=== PATIENT | male | born 1975 | race Caucasian/White ===

== ENCOUNTER → 2017-01-31 | Outpatient (CLI) | payer MEDICARE ==
[~2017-01-31] MED LIST: ASPIRIN325 MG PO; ATORVASTATIN CA10 MG PO; DOSS PO; FLONASE 0.05% N16 GM; HUMALOG SQ; INVOKANA100 MG PO; LANTUS100 UNIT/1 SQ; LISINOPRIL-HCT1 EAC2 PO; LORTAB 7.5-3251 EACH PO; NEURONTIN400 MG PO; NORVASC 5 MG TAB5 MG PO; PERCOCET 5-3251 EACH PO; PHENERGAN 12.12.5 M1 PO; PROTONIX40 MG PO; PROVENTIL HFA 61 INH INH; SINGULAIR10 MG PO; SYMBICORT 160-1 INHA INH; VENTOLIN HFA8 GM INH; ZANAFLEX4 M1 PO
[2017-01-31 13:18] LABS: BUN/CREATININE RATIO 9 (0-10)
== END ==
LOC: OPSV2 12:23
PROVIDERS: Orthopaedic Surgery
DX: Z01.812 Encounter for preprocedural laboratory examination (principal); Z01.810 Encounter for preprocedural cardiovascular examination; S83.511A Sprain of anterior cruciate ligament of right knee, initial encounter
CPT/HCPCS: 36415; 80048; 83036; 93005

== ENCOUNTER → 2017-02-07 | Day surgery (SDC) | payer MEDICARE ==
[~2017-02-07] VITALS: Ht 175.3 cm; Wt 139.7 kg
== END | disposition home or self-care (01) ==
LOC: OR 08:43
PROVIDERS: Orthopaedic Surgery
PROC: 0MUN47Z Supplement Right Knee Bursa and Ligament with Autologous Tissue Substitute, Percutaneous Endoscopic Approach (ICD-10-PCS; principal; 2017-02-07 09:45)
DX: S83.511A Sprain of anterior cruciate ligament of right knee, initial encounter (principal); M22.41 Chondromalacia patellae, right knee; I10 Essential (primary) hypertension; E78.5 Hyperlipidemia, unspecified; J45.909 Unspecified asthma, uncomplicated; K21.9 Gastro-esophageal reflux disease without esophagitis; E11.9 Type 2 diabetes mellitus without complications; G47.33 Obstructive sleep apnea (adult) (pediatric); M19.90 Unspecified osteoarthritis, unspecified site; G43.909 Migraine, unspecified, not intractable, without status migrainosus; G89.29 Other chronic pain; M54.9 Dorsalgia, unspecified; Z90.49 Acquired absence of other specified parts of digestive tract; Z79.4 Long term (current) use of insulin; Z79.899 Other long term (current) drug therapy; Z87.19 Personal history of other diseases of the digestive system; Z87.440 Personal history of urinary (tract) infections; Z82.49 Family history of ischemic heart disease and other diseases of the circulatory system
CPT/HCPCS: 73560; 76000; 82962; C1713; J0171; J0690; J1100; J2250; J2405; J2550; J2710; J2795; J3010; J7030; J7120

== ENCOUNTER → 2017-05-10 | Outpatient (CLI) | payer MEDICARE | LOC: EMI 18:07 | DX: M54.9 Dorsalgia, unspecified (principal); M47.896 Other spondylosis, lumbar region | CPT/HCPCS: 72148 ==

== ENCOUNTER 2021-02-25 15:16 | Emergency (ER) | payer OTHER ==
[~2021-02-25 15:16] MED LIST changes: +BACTRIM DS TAB1 EACH PO; +ELIQUIS2.5 MG PO; +EPINEPHRIN0.3 MG/0.3 INJ; +FLEXERIL 10 MG10 MG PO; +FLUTICASONE SPRAY; +IBU800 MG PO; +IBUPROFEN600 MG PO; +KEFLEX CAP 500500 MG PO; +LIPITOR40 MG PO; +LISINOPRIL-HCT1 EACH PO; +LISINOPRIL10 MG PO; +MUCINEX600 MG PO; +NAPROSYN500 MG PO; +NORCO 5-325 TA1 EACH PO; +PROMETHAZINE-DM PO; +ROBITUSSIN100 MG/51 PO; +SUDOGEST PE10 MG PO; +TESSALON PERLE100 MG PO; +VENTOLIN HFA 66.7 GM INH; +WIXELA 250-501 EACH INH; +ZOFRAN 4 MG TAB4 MG PO; +ZOFRAN4 MG PO; +ZYRTEC10 MG PO
[2021-02-25 17:25] LABS: HEMOGLOBIN 16.4 gm/dl (14.0-17.5); RED BLOOD COUNT 5.53 M/UL (4.20-5.50); WHITE BLOOD COUNT 7.3 K/UL (4.5-11.0)
[2021-02-25 17:48] LABS: BUN/CREATININE RATIO 9 (0-10)
[2021-02-25] MEDS ORDERED: ZOFRAN4 MG PO (20:03)
== END 2021-02-25 20:36 | disposition home or self-care (01) ==
LOC: ER1 15:16
PROVIDERS: Student in an Organized Health Care Education/Training Program
DX: R10.9 Unspecified abdominal pain (principal); R11.2 Nausea with vomiting, unspecified; E11.9 Type 2 diabetes mellitus without complications; I10 Essential (primary) hypertension; Z79.899 Other long term (current) drug therapy
CPT/HCPCS: 80053; 81001; 82550; 82553; 83690; 83874; 84484; 85025; 93005; 96374; 96375; 99284; J2405; Q9967

== ENCOUNTER 2021-07-02 10:23 | Emergency (ER) | payer OTHER | END 2021-07-02 13:43 | disposition home or self-care (01) | LOC: ER1 10:23 | DX: S46.912A Strain of unspecified muscle, fascia and tendon at shoulder and upper arm level, left arm, initial encounter (principal); I10 Essential (primary) hypertension; Z79.899 Other long term (current) drug therapy; X50.0XXA Overexertion from strenuous movement or load, initial encounter | CPT/HCPCS: 73030; 99283 ==

== ENCOUNTER → 2021-12-14 | Day surgery (SDC) | payer OTHER ==
[~2021-12-14] MED LIST changes: +FUROSEMIDE20 MG PO; +ZESTRIL/PRINIVI10 MG PO
== END | disposition home or self-care (01) ==
LOC: OR 05:50
DX: K29.50 Unspecified chronic gastritis without bleeding (principal); K21.00 Gastro-esophageal reflux disease with esophagitis, without bleeding; K44.9 Diaphragmatic hernia without obstruction or gangrene; E11.43 Type 2 diabetes mellitus with diabetic autonomic (poly)neuropathy; K31.84 Gastroparesis; K76.0 Fatty (change of) liver, not elsewhere classified; D18.03 Hemangioma of intra-abdominal structures; J45.909 Unspecified asthma, uncomplicated; E11.9 Type 2 diabetes mellitus without complications; I10 Essential (primary) hypertension; Z80.0 Family history of malignant neoplasm of digestive organs; E66.01 Morbid (severe) obesity due to excess calories; Z20.822 Contact with and (suspected) exposure to COVID-19
CPT/HCPCS: J2704; J7040

== ENCOUNTER 2022-05-06 10:43 | Observation (INO) | payer OTHER ==
[~2022-05-06] VITALS: Ht 175.3 cm; Wt 129.5 kg
[2022-05-06] MEDS ORDERED: ENDOCET 5-3251 EACH PO (16:40)
[2022-05-06 18:42] LABS: HEMOGLOBIN 15.6 gm/dl (14.0-17.5); RED BLOOD COUNT 5.13 M/UL (4.20-5.50); WHITE BLOOD COUNT 8.9 K/UL (4.5-11.0)
[2022-05-06 19:08] LABS: BUN/CREATININE RATIO 9 (0-10)
[2022-05-07] MEDS ORDERED: ENDOCET 10-3251 EACH PO (16:10)
[2022-05-07] MEDS ORDERED: CYCLOBENZAPRINE10 MG PO (16:10)
[2022-05-07] MEDS ORDERED: ZOFRAN 4 MG TAB4 MG PO (16:10)
[2022-05-08 03:32] LABS: BUN/CREATININE RATIO 13 (0-10)
== END 2022-05-08 14:27 | disposition home or self-care (01) ==
LOC: ER1 10:43 → M/S 18:29 → CDU 18:29 → M/S 19:33
PROVIDERS: Internal Medicine; ADMIT Internal Medicine
PROC: 0PSJ04Z Reposition Left Radius with Internal Fixation Device, Open Approach (ICD-10-PCS; principal; 2022-05-06)
PROC: 0PSH04Z Reposition Right Radius with Internal Fixation Device, Open Approach (ICD-10-PCS; 2022-05-06)
DX: S52.542A Smith's fracture of left radius, initial encounter for closed fracture (principal); S52.541A Smith's fracture of right radius, initial encounter for closed fracture; E11.43 Type 2 diabetes mellitus with diabetic autonomic (poly)neuropathy; K31.84 Gastroparesis; I10 Essential (primary) hypertension; E66.01 Morbid (severe) obesity due to excess calories; Z68.41 Body mass index [BMI] 40.0-44.9, adult; Z79.84 Long term (current) use of oral hypoglycemic drugs; Z79.899 Other long term (current) drug therapy; Z96.652 Presence of left artificial knee joint; Z96.82 Presence of neurostimulator; W01.0XXA Fall on same level from slipping, tripping and stumbling without subsequent striking against object, initial encounter
CPT/HCPCS: 25605; 73100; 73110; 76000; 80048; 82962; 85025; 96374; 96375; 96376; 97166; 97535; 99152; 99153; 99284; C1713; G0378; J0690; J1100; J1170; J1885; J2001; J2250; J2270; J2405; J2550; J2704; J3010; J7030; J7040; J7120

== ENCOUNTER 2022-05-25 10:13 | Emergency (ER) | payer OTHER ==
[~2022-05-25 10:13] MED LIST changes: +CYCLOBENZAPRINE10 MG PO; +ENDOCET 10-3251 EACH PO; +ENDOCET 5-3251 EACH PO
[2022-05-25 12:34] LABS: HEMOGLOBIN 15.4 gm/dl (14.0-17.5); RED BLOOD COUNT 5.06 M/UL (4.20-5.50); WHITE BLOOD COUNT 6.2 K/UL (4.5-11.0)
[2022-05-25 12:56] LABS: BUN/CREATININE RATIO 10 (0-10)
== END 2022-05-25 14:48 | disposition admitted as inpatient to this hospital (09) ==
LOC: ER1 10:13
PROVIDERS: Emergency Medicine
DX: Z46.89 Encounter for fitting and adjustment of other specified devices (principal); Z20.822 Contact with and (suspected) exposure to COVID-19
CPT/HCPCS: 29125; 71045; 80048; 81001; 85025; 85652; 86140; 87040; 99283; U0002